=== PATIENT | female | born 1970 | race Caucasian/White ===

== ENCOUNTER 2025-09-27 18:49 | Inpatient (IN) ==
--- NOTE | 2025-09-27 19:05 | Emergency Department Note ---
Past Med/Surg History Problem List Nausea and vomiting (Acute) Right flank pain (Acute) Pyelonephritis (Acute) Medical History Hypertension Social History Smoking Status: Current some day smoker Tobacco Type: Cigarettes Preferred Language: Rw[place] Feels Safe at Home: Yes Home Meds Home Medications Medication Instructions Recorded Confirmed albuterol sulfate 90 mcg/actuation 1 puff inhalation DIRECTED PRN 09/26/25 09/26/25 aerosol inhaler sob alprazolam 1 mg tablet 1 mg PO UD PRN Other 09/26/25 09/26/25 cefuroxime axetil 250 mg tablet 250 mg PO BID 09/26/25 09/26/25 lisinopril 5 mg tablet 5 mg PO DAILY 09/26/25 09/26/25 methylprednisolone 4 mg tablet 4 mg PO DIRECTED 09/26/25 09/26/25 promethazine-DM 6.25 mg-15 mg/5 mL 5 ml PO UD PRN Cough 09/26/25 09/26/25 oral syrup Previous Rx's Medication Instructions Recorded cefdinir 300 mg capsule 300 mg PO BID 14 days #28 caps 09/26/25 ondansetron 4 mg disintegrating 4 mg PO Q6H PRN nausea and 09/26/25 tablet vomiting #14 tabs Results & Data (ED) Vital Signs Vital Signs - 24 hr 09/27/25 18:57 Temperature 36.7 C Temperature Source Oral Pulse Rate 106 H Respiratory Rate 18 Blood Pressure 137/82 Blood Pressure Mean 100 Pulse Oximetry 96 Sepsis Recent Fever Within 48 Hours No Sepsis New/Unexplained Change in Mental Status No Sepsis Action Taken by Nursing No Action Required Discharge Plan Visit Data Chief Complaint: Referred by Doctor Stated Complaint: DOC REFERRAL [facility]PATIENT [facility]TIBOT[facility] ED Provider: Marisel Cadet ED Midlevel Provider: Shanice Husain Forms Stand Alone Forms: [facility] Prescriptions Prescriptions: No Action promethazine-DM 6.25-15 mg/5 mL syrup 5 ml PO UD PRN (Reason: Cough) cefuroxime axetil 250 mg tablet 250 mg PO BID alprazolam 1 mg tablet 1 mg PO UD PRN (Reason: Other) methylprednisolone 4 mg tablet 4 mg PO DIRECTED lisinopril 5 mg tablet 5 mg PO DAILY albuterol sulfate 90 mcg/actuation HFA aerosol inhaler 1 puff INHALATION DIRECTED PRN (Reason: sob) ondansetron 4 mg tablet,disintegrating 4 mg PO Q6H PRN (Reason: nausea and vomiting) Qty: 14 0RF cefdinir 300 mg capsule 300 mg PO BID 14 Days Qty: 28 0RF Referrals Referrals: Reji Gibbs DO [Primary Care Provider] -
[2025-09-27] MEDS: cefTRIAXone SODIUM 2,000 MG/50 ML BAG IV STA (19:34)
[2025-09-27] MEDS: SODIUM CHLORIDE 0.9% 1,000 ML IV SCH ×2 (19:35→23:30)
[2025-09-27 19:42] LABS: Hematocrit (blood only) 35.7 % (37.0-47.0); Hemoglobin 12.1 g/dL (12.0-16.0); Immature Granulocytes # (auto) 0.23 K/uL (0.01-0.20); Immature Granulocytes % (auto) 1.7 %; Mean Corpuscular Hemoglobin 34.3 pg (25.0-34.0); Mean Corpuscular Volume 101.1 fL (80.0-100.0); Platelet Count 257 K/uL (130-400); RDW Standard Deviation 46.6 fL (36.4-46.3); Red Blood Count 3.53 M/uL (4.20-5.40); White Blood Count 13.60 K/ul (4.8-10.8)
[2025-09-27 20:01] LABS: Alanine Aminotransferase 46.0 U/L (7-52); Albumin Level 3.2 gm/dl (3.4-5.0); Alkaline Phosphatase 204.0 U/L (34-104); Anion Gap 13.0 (3-11); Bilirubin,Total 0.4 mg/dl (0.2-1.0); Blood Urea Nitrogen 15.0 mg/dl (6-23); Calcium 8.7 mg/dl (8.6-10.3); Carbon Dioxide 23.0 mmol/L (21-32); Chloride 100.0 mmol/L (98-107); Creatinine Clr Calc Pharmacy 66.1 ml/min; Glucose 90.0 mg/dl (70-99(Fasting)); Magnesium 1.8 mg/dl (1.7-2.4); Potassium 3.0 mmol/L (3.5-5.1); Sodium 136.0 mmol/L (136-145); Total Protein 6.9 gm/dl (6.0-8.3)
--- NOTE | 2025-09-27 20:29 | History & Physical Report ---
Date of Service September 27, 2025 Assessment & Plan (1) Bacteremia: Plan: 54-year-old female with past med history significant for hypertension, anxiety and depression, hypothyroidism, GERD, history of kidney stones came to the ER yesterday for generalized bodyaches, fevers ,nausea and vomiting for few days and found to have UTI and as she improved with the fluids ,pain meds and antiemetics and Rocephin she was discharged with p.o. cefdinir but was called ba ck today because the blood cultures came back positive for gram negative bacilli, urine culture growing E. coli. Patient says she has been sick since . She was having cold symptoms with cough congestion and fevers. It was thought upper respiratory infection and was prescribed Z-Westley and course of steroids and albuterol, she completed the course. Again she was having fevers and not feeling well and still was having cough and she has done second course of azithromycin and steroids. Yesterday she came here for son's graduation and as she was not feeling well came to the ER. Denies any burning micturition or hematuria. Says she stools are somewhat black. Denies any abdominal pain. No chest pain or shortness of breath. Still has cough and bringing up phlegm. She smokes half pack of cigarettes daily but since last 1 week she has not been smoking. Last few days she has been nauseous and not eating. Denies any headache. No runny nose or sore throat. Currently resting comfortably and hemodynamically stable. Seems she is from [facility] and works with [employer]. Bacteremia Acute UTI Gram-negative bacteremia E. coli in urine cultures Empiric Rocephin Fluids Will follow final cultures History of kidney stones but CAT scan of abdomen pelvis IV contrast done yesterday no obvious stones were seen Close monitoring med/telemetry Ongoing cough History of smoking Had couple of courses of azithromycin and steroid as outpatient CTA chest done yesterday unremarkable Chest x-ray today unremarkable Will monitor Mild elevation troponin Mostly demand ischemia Will follow serial cardiac enzymes and EKG Currently asymptomatic History of hypertension Continue lisinopril GERD On Pepcid Anxiety and depression Continue citalopram and alprazolam as needed Hypothyroidism On Synthyroid Will follow TSH Mild elevation of alkaline phosphatase Possibly from ongoing infection Follow repeat labs Hypokalemia Will replace Follow repeat labs Diarrhea black stools hb ok will check stool for Hemoccult and c diff DVT prophylaxis Lovenox Disposition Med/telemetry Full code. History of Present Illness Chief Complaint: Acute UTI, bacteremia Primary Care Provider: Reji Gibbs DO 54-year-old female with past med history significant for hypertension, anxiety and depression, hypothyroidism, GERD, history of kidney stones came to the ER yesterday for generalized bodyaches, fevers ,nausea and vomiting for few days and found to have UTI and as she improved with the fluids ,pain meds and antiemetics and Rocephin she was discharged with p.o. cefdinir but was called back today because the blood cultures came back positive for gram negative bacilli, urine culture growing E. coli. Patient says she has been sick since . She was having cold symptoms with cough congestion and fevers. It was thought upper respiratory infection and was prescribed Z-Westley and course of steroids and albuterol, she completed the course. Again she was having fevers and not feeling well and still was having cough and she has done second course of azithromycin and steroids. Yesterday she came here for son's graduation and as she was not feeling well came to the ER. Denies any burning micturition or hematuria. Says she stools are somewhat black and having diarrhea. Denies any abdominal pain. No chest pain or shortness of breath. Still has cough and bringing up phlegm. She smokes half pack of cigarettes daily but since last 1 week she has not been smoking. Last few days she has been nauseous and not eating. Denies any headache. No runny nose or sore throat. Currently resting comfortably and hemodynamically stable. Seems she is from [facility] and works with [employer]. Past medical history. As mentioned above. Past surgical history. Tonsillectomy. Cholecystectomy. Removal of melanoma lesions in 1998. Right breast biopsy. Social history. Smokes half pack of cigarettes daily. But has been not smoking since last 1 week. Drinks 2-3 drinks daily but since last 1 month has been not drinking. No drug use as per [facility]. Family history. Patient is adopted. Allergies Allergy/AdvReac Type Severity Reaction Status Date / Time No Known Allergies Allergy Unverified 09/27/25 19:33 Home Medications Medication Instructions Recorded Confirmed Type albuterol sulfate 90 mcg/actuation 1 puff inhalation DIRECTED PRN 09/26/25 09/27/25 History aerosol inhaler sob alprazolam 1 mg tablet 1 mg PO UD PRN Other 09/26/25 09/27/25 History cefdinir 300 mg capsule 300 mg PO BID 14 days #28 caps 09/26/25 09/27/25 Rx cefuroxime axetil 250 mg tablet 250 mg PO BID 09/26/25 09/27/25 History lisinopril 5 mg tablet 5 mg PO QAM 09/26/25 09/27/25 History methylprednisolone 4 mg tablet 4 mg PO DIRECTED 09/26/25 09/27/25 History ondansetron 4 mg disintegrating 4 mg PO Q6H PRN nausea and 09/26/25 09/27/25 Rx tablet vomiting #14 tabs promethazine-DM 6.25 mg-15 mg/5 mL 5 ml PO UD PRN Cough 09/26/25 09/27/25 History oral syrup biotin 800 mcg tablet 800 mcg PO QAM 09/27/25 09/27/25 History citalopram 20 mg tablet 20 mg PO QAM 09/27/25 09/27/25 History famotidine 20 mg tablet (Pepcid) 20 mg PO QPM 09/27/25 09/27/25 History levothyroxine 100 mcg tablet 100 mcg PO DAILYBB 09/27/25 09/27/25 History [id number]-fyds-ihob 8 mg-folic 400 1 tab PO QAM 09/27/25 09/27/25 History mcg-K 50 mcg-lutein 300 mcg tablet (Multivitamin Women 50 Plus) Past Med/Surg History Problem List (Updated 09/27/25 @ 20:24 by Nader Syed MD) Bacteremia Nausea and vomiting (Acute) Right flank pain (Acute) Pyelonephritis (Acute) Medical History Hypertension Social History Smoking Status: Current every day smoker Tobacco Type: Cigarettes Cigarettes Per Day: 1/2 pack/day; Do You Dip or Chew Tobacco: No; Hx Alcohol Use: Yes Alcohol type: beer, wine and hard liquor Hx Substance Use: No Preferred Language: Luxembourgish Communication Ability: Effective Feeder Associate Required: No Beliefs That Will Affect Care: None Current Living Situation: Alone Other Information That Helps Us Care for You: No Feels Safe at Home: Yes Safety Concerns: Feels Safe At This Time Assistive Devices: Glasses Review of Systems Review of Systems: All systems reviewed & are unremarkable except as noted in HPI & below Physical Exam Physical Exam: General- Not in acute distress Head- atraumatic Eyes- PERRL. ENT- oropharynx clear Neck- supple, no JVD. Lungs- clear to auscultation no wheezing or crackles Heart- regular rhythm; no murmur, no gallop. Abdomen- normal bowel sounds, soft, nontender, no distension Extremities- no pretibial edema, no erythema seen. Neuro- alert, oriented PERRL, no facial palsy; no dysarthria; moves extremities. Results & Data Results & Data Vital Signs (Past 12 Hours) Vital Signs Temp Pulse Resp BP Pulse Ox O2 Del Method 09/27/25 19:28 95 Room Air 09/27/25 19:22 93 H 09/27/25 18:57 36.7 C 106 H 18 137/82 96 Diagnostic Findings Laboratory Results WBC 13.60 K/ul (4.8-10.8) H 09/27/25 19:23 RBC 3.53 M/uL (4.20-5.40) L 09/27/25 19:23 Hgb 12.1 g/dL (12.0-16.0) 09/27/25 19:23 Hct 35.7 % (37.0-47.0) L 09/27/25 19: MCV 101.1 fL (80.0-100.0) H 09/27/25 19:23 MCH 34.3 pg (25.0-34.0) H 09/27/25 19:23 MCHC 33.9 g/dL (32.0-36.0) 09/27/25 19: RDW Std Deviation 46.6 fL (36.4-46.3) H 09/27/25 19: RDW Coeff of Krysta 12.5 % (11.5-14.5) 09/27/25 19: Plt Count 257 K/uL (130-400) 09/27/25 19: MPV 10.4 fL (9.4-12.4) 09/27/25 19:23 Immature Gran % (Auto) 1.7 % 09/27/25 19: Neut % (Auto) 74.7 % 09/27/25 19:23 Lymph % (Auto) 13.8 % 09/27/25 19:23 [place] % (Auto) 9.0 % 09/27/25 19:23 Eos % (Auto) 0.5 % 09/27/25 19:23 Baso % (Auto) 0.3 % 09/27/25 19: Neut # (Auto) 10.16 K/uL (1.40-6.50) H 09/27/25 19:23 Lymph # (Auto) 1.87 K/uL (1.20-3.40) 09/27/25 19: [place] # (Auto) 1.23 K/uL (0.11-0.59) H 09/27/25 19:23 Eos # (Auto) 0.07 K/uL (0.00-0.50) 09/27/25 19: Baso # (Auto) 0.04 K/uL (0.00-0.20) 09/27/25 19: Immature Gran # (Auto) 0.23 K/uL (0.01-0.20) H 09/27/25 19:23 Sodium 136 mmol/L (136-145) 09/27/25 19: Potassium 3.0 mmol/L (3.5-5.1) L 09/27/25 19:23 Chloride 100 mmol/L (98-107) 09/27/25 19: Carbon Dioxide 23 mmol/L (21-32) 09/27/25 19:23 Anion Gap 13 (3-11) H 09/27/25 19:23 BUN 15 mg/dl (6-23) 09/27/25 19: Creatinine 1.06 mg/dl (0.6-1.2) 09/27/25 19: Est Cr Clr Drug Dosing 66.1 ml/min 09/27/25 19:23 eGFR 62.04 09/27/25 19:23 BUN/Creatinine Ratio 14.2 (10-20) 09/27/25 19: Glucose 90 mg/dl (70-99(Fasting)) 09/27/25 19:23 Lactate 0.8 mmol/L (0.4-2.0) 09/27/25 19:23 Calcium 8.7 mg/dl (8.6-10.3) 09/27/25 19:23 Magnesium 1.8 mg/dl (1.7-2.4) 09/27/25 19:23 Total Bilirubin 0.4 mg/dl (0.2-1.0) 09/27/25 19:23 Direct Bilirubin 0.1 mg/dl (0-0.2) 09/27/25 19:23 AST 23 U/L (13-39) 09/27/25 19:23 ALT 46 U/L (7-52) 09/27/25 19:23 Alkaline Phosphatase 204 U/L (34-104) H 09/27/25 19:23 Troponin I High Sens 20.4 pg/ml (0-14) H 09/27/25 19:23 Total Protein 6.9 gm/dl (6.0-8.3) 09/27/25 19:23 Albumin 3.2 gm/dl (3.4-5.0) L 09/27/25 19:23 Procalcitonin 0.67 ng/ml (0-0.5) H 09/27/25 19:23 Code Status & VTE Plan VTE Prophylaxis Plan VTE Prophylaxis will be ordered: Yes
[2025-09-27 20:57] LABS: Appearance Urine Clear (Clear); Bacteria Urine Automated None Seen (None Seen); Cast Urine Automated 0-2 /lpf (0-2); Glucose Urine UA Negative (Negative); WBC Urine Automated 21-50 /hpf (0-5)
[2025-09-27] MEDS: POTASSIUM CHLORIDE PWD 20 MEQ PACK PO STA (21:18)
--- NOTE | 2025-09-27 21:20 | XRay Report ---
Chest radiograph, one view History: Sepsis. Comparison: September 26, 2025. Findings: Cardiomediastinal silhouette is within normal limits. Pulmonary vasculature is within normal limits. Likely discoid atelectasis left lateral pulmonary base. Lungs are otherwise clear. Pleural spaces are within normal limits. Impression: Stable exam. No findings to indicate source for patient's symptoms. Electronically signed by Jasper Osborne 09-27-2025 9:20 PM
[2025-09-27] MEDS ORDERED: ALBUTEROL HFA 8 GM INHALER INH PRN (22:48)
[2025-09-27] MEDS ORDERED: POLYETHYLENE (MIRALAX) 17 GM PACK PO PRN (22:48)
[2025-09-27] MEDS: FAMOTIDINE 20 MG TAB PO SCH (23:21)
[2025-09-27] MEDS: ONDANSETRON INJ 2 MG/ML 2 ML VIAL IV PRN (23:23)
[2025-09-27] MEDS: KETOROLAC TROMETHAMINE 15 MG/ML VIAL IV PRN (23:23)
[2025-09-27] MEDS: POTASSIUM CHLORIDE / WTR 10 MEQ/100 ML PLCT IV SCH (23:30)
[2025-09-28 00:36] LABS: Cdiff Toxin B Gene (2yr or >) Negative Cdiff Gene (Neg)
[2025-09-28] MEDS: LEVOTHYROXINE SODIUM 100 MCG TABLET PO SCH (06:14)
[2025-09-28 07:00] LABS: Hematocrit (blood only) 33.2 % (37.0-47.0); Hemoglobin 11.4 g/dL (12.0-16.0); Immature Granulocytes # (auto) 0.16 K/uL (0.01-0.20); Immature Granulocytes % (auto) 1.6 %; Mean Corpuscular Hemoglobin 35.8 pg (25.0-34.0); Mean Corpuscular Volume 104.4 fL (80.0-100.0); Platelet Count 268 K/uL (130-400); RDW Standard Deviation 47.8 fL (36.4-46.3); Red Blood Count 3.18 M/uL (4.20-5.40); White Blood Count 10.06 K/ul (4.8-10.8)
[2025-09-28 07:41] LABS: Anion Gap 9.0 (3-11); Blood Urea Nitrogen 10.0 mg/dl (6-23); Calcium 8.1 mg/dl (8.6-10.3); Carbon Dioxide 23.0 mmol/L (21-32); Chloride 106.0 mmol/L (98-107); Creatinine Clr Calc Pharmacy 77.0 ml/min; Glucose 70.0 mg/dl (70-99(Fasting)); Magnesium 1.8 mg/dl (1.7-2.4); Potassium 3.9 mmol/L (3.5-5.1); Sodium 138.0 mmol/L (136-145)
[2025-09-28] MEDS: CITALOPRAM 20 MG TAB PO SCH (08:09)
[2025-09-28] MEDS: ENOXAPARIN INJ 40 MG/0.4 ML SYR SQ SCH (08:09)
[2025-09-28] MEDS: CEROVITE ADV FORMULA TAB PO SCH (08:09)
[2025-09-28] MEDS: ACETAMINOPHEN 325 MG TAB PO PRN (08:25)
--- NOTE | 2025-09-28 12:01 | Hospitalist Progress Note ---
Date of Service September 28, 2025 Assessment & Plan (1) Bacteremia: Plan: 54-year-old female with past med history significant for hypertension, anxiety and depression, hypothyroidism, GERD, history of kidney stones came to the ER With fever, flank pain and generalized bodyaches. She was discharged from the ED but was called back after she was found to have bacteremia E.coli Bacteremia Acute UTI Right-sided pyelonephritis Sepsis POA Presents with right flank pain, fever, muscle aches. Urine culture positive for E. coli; sensitive to ceftriaxone, ciprofloxacin; resistant to Augmentin Blood culture from out of 4 positive for E. coli Continue on ceftriaxone; follow-up on repeat blood culture from September 27, 2025. Plan on doing 10 to 14 days of antibiotics given right-sided pyelonephritis. Mild elevation troponin Mostly demand ischemia High sensitivity troponin peaked to 20 and down trended; no chest pain or discomfort. History of hypertension Continue lisinopril GERD On Pepcid Anxiety and depression Continue citalopram and alprazolam as needed Hypothyroidism On Synthyroid-continue Mild elevation of alkaline phosphatase Possibly from ongoing infection Follow repeat labs Hypokalemia- repleted DVT prophylaxis Lovenox Disposition Med/telemetry Full code. Time spent evaluating patient, direct bedside care, chart review, placing orders, interpretation of diagnostic studies, discussion with consultants, patient, and family members, as well as other required patient management activities is 50 minutes Please note the above document was generated using voice recognition software. It may contain grammatical, syntax or spelling errors. Any formal questions or concerns about the content, text or information contained within the body of this dictation should be directly addressed to the provider for clarification Admission and Anticipated Discharge Date Admission Date: September 27, 2025 Subjective Patient seen and examined at bedside. She is comfortable; not in distress. No complaint of fever or chills today. Continues to have right flank pain Review of Systems Review of Systems: All systems reviewed & are unremarkable except as noted in Subjective Physical Exam Physical Exam: General- Not in acute distress Head- atraumatic Eyes- PERRL. ENT- oropharynx clear Neck- supple, no JVD. Lungs- clear to auscultation no wheezing or crackles Heart- regular rhythm; no murmur, no gallop. Abdomen- Right costovertebral angle tender Extremities- no pretibial edema, no erythema seen. Neuro- alert, oriented PERRL, no facial palsy; no dysarthria; moves extremities. Results & Data Results & Data Vital Signs (Past 12 Hours) Vital Signs Temp Pulse Pulse Resp BP Pulse Ox O2 Del Method 09/28/25 11:42 36.6 C 92 H 16 134/77 96 Room Air 09/28/25 08:30 Room Air 09/28/25 08:02 36.7 C 86 16 129/77 96 Room Air 09/28/25 05:41 80 09/28/25 03:07 36.8 C 91 H 16 115/72 94 Room Air
--- NOTE | 2025-09-28 14:19 | Electrocardiogram Report ---
Test Reason : Blood Pressure : */* mmHG Vent. Rate : 95 BPM Atrial Rate : 95 BPM P-R Int : 132 ms QRS Dur : 76 ms QT Int : 376 ms P-R-T Axes : 55 10 42 degrees QTcB Int : 472 ms Normal sinus rhythm Possible Left atrial enlargement Borderline ECG When compared with ECG of 26-Sep-2025 10:56, No significant change was found Confirmed by Narinder Fuller ([id number]) on 09/28/2025 2:19:05 PM Referred By: REFERRED SELF Confirmed By: Narinder Fuller
[2025-09-28] MEDS: cefTRIAXone SODIUM 2,000 MG/50 ML BAG IV SCH (15:11)
[2025-09-28] MEDS ORDERED: cefTRIAXone SODIUM 2,000 MG/50 ML BAG IV SCH (19:00)
[2025-09-28 23:49] VITALS: O2SAT 97
[2025-09-29 06:41] LABS: Hematocrit (blood only) 33.4 % (37.0-47.0); Hemoglobin 11.3 g/dL (12.0-16.0); Immature Granulocytes # (auto) 0.15 K/uL (0.01-0.20); Immature Granulocytes % (auto) 1.7 %; Mean Corpuscular Hemoglobin 34.0 pg (25.0-34.0); Mean Corpuscular Volume 100.6 fL (80.0-100.0); Platelet Count 288 K/uL (130-400); RDW Standard Deviation 46.1 fL (36.4-46.3); Red Blood Count 3.32 M/uL (4.20-5.40); White Blood Count 8.58 K/ul (4.8-10.8)
[2025-09-29 07:25] LABS: Albumin Level 3.0 gm/dl (3.4-5.0); Anion Gap 10.0 (3-11); Bilirubin,Total 0.2 mg/dl (0.2-1.0); Calcium 8.6 mg/dl (8.6-10.3); Carbon Dioxide 23.0 mmol/L (21-32); Chloride 107.0 mmol/L (98-107); Potassium 3.8 mmol/L (3.5-5.1); Sodium 140.0 mmol/L (136-145)
[2025-09-29 07:31] LABS: Alanine Aminotransferase 24.0 U/L (7-52); Alkaline Phosphatase 155.0 U/L (34-104); Blood Urea Nitrogen 5.0 mg/dl (6-23); Creatinine Clr Calc Pharmacy 89.1 ml/min; Glucose 98.0 mg/dl (70-99(Fasting)); Total Protein 6.1 gm/dl (6.0-8.3)
[2025-09-29 08:11] VITALS: RESP 18
[2025-09-29 11:22] VITALS: BP 130/84; TEMP 97.7
--- NOTE | 2025-09-29 14:28 | Discharge Summary ---
Date of Service September 29, 2025 Admission HPI Per Admitting Provider 54-year-old female with past med history significant for hypertension, anxiety and depression, hypothyroidism, GERD, history of kidney stones came to the ER yesterday for generalized bodyaches, fevers ,nausea and vomiting for few days and found to have UTI and as she improved with the fluids ,pain meds and antiemetics and Rocephin she was discharged with p.o. cefdinir but was called back today because the blood cultures came back positive for gram negative bacilli, urine culture growing E. coli. Patient says she has been sick since . She was having cold symptoms with cough congestion and fevers. It was thought upper respiratory infection and was prescribed Z-Westley and course of steroids and albuterol, she completed the course. Again she was having fevers and not feeling well and still was having cough and she has done second course of azithromycin and steroids. Yesterday she came here for son's graduation and as she was not feeling well came to the ER. Denies any burning micturition or hematuria. Says she stools are somewhat black and having diarrhea. Denies any abdominal pain. No chest pain or shortness of breath. Still has cough and bringing up phlegm. She smokes half pack of cigarettes daily but since last 1 week she has not been smoking. Last few days she has been nauseous and not eating. Denies any headache. No runny nose or sore throat. Currently resting comfortably and hemodynamically stable. Seems she is from [facility] and works with [employer]. Past medical history. As mentioned above. Past surgical history. Tonsillectomy. Cholecystectomy. Removal of melanoma lesions in 1998. Right breast biopsy. Social history. Smokes half pack of cigarettes daily. But has been not smoking since last 1 week. Drinks 2-3 drinks daily but since last 1 month has been not drinking. No drug use as per [employer]. Family history. Patient is adopted. Admission Exam Per Admitting Provider General- Not in acute distress Head- atraumatic Eyes- PERRL. ENT- oropharynx clear Neck- supple, no JVD. Lungs- clear to auscultation no wheezing or crackles Heart- regular rhythm; no murmur, no gallop. Abdomen- normal bowel sounds, soft, nontender, no distension Extremities- no pretibial edema, no erythema seen. Neuro- alert, oriented PERRL, no facial palsy; no dysarthria; moves extremities. Principal Diagnosis E.coli Bacteremia Acute UTI Right-sided pyelonephritis Sepsis POA Discharge Exam General- Not in acute distress Head- atraumatic Eyes- PERRL. ENT- oropharynx clear Neck- supple, no JVD. Lungs- clear to auscultation no wheezing or crackles Heart- regular rhythm; no murmur, no gallop. Abdomen- Right costovertebral angle tender x mild Extremities- no pretibial edema, no erythema seen. Neuro- alert, oriented PERRL, no facial palsy; no dysarthria; moves extremities. Discharge Data Allergies Allergy/AdvReac Type Severity Reaction Status Date / Time No Known Allergies Allergy Unverified 09/27/25 19:33 Consultations 09/27/25 19:27 ED Decision to Admit Stat Hospital Course (1) Bacteremia: Per prior attending with addendum: 54-year-old female with past med history significant for hypertension, anxiety and depression, hypothyroidism, GERD, history of kidney stones came to the ER With fever, flank pain and generalized bodyaches. She was discharged from the ED but was called back after she was found to have bacteremia E.coli Bacteremia Acute UTI Right-sided pyelonephritis Sepsis POA Presents with right flank pain, fever, muscle aches. Urine culture positive for E. coli; sensitive to ceftriaxone, ciprofloxacin; resistant to Augmentin Blood culture from out of 4 positive for E. coli Continue on ceftriaxone; follow-up on repeat blood culture from September 27, 2025. Plan on doing 10 to 14 days of antibiotics given right-sided pyelonephritis. Mild elevation troponin Mostly demand ischemia High sensitivity troponin peaked to 20 and down trended; no chest pain or discomfort. History of hypertension Continue lisinopril GERD On Pepcid Anxiety and depression Continue citalopram and alprazolam as needed Hypothyroidism On Synthyroid-continue Mild elevation of alkaline phosphatase Possibly from ongoing infection Follow repeat labs Hypokalemia- repleted DVT prophylaxis Lovenox Disposition Med/telemetry Full code. Addendum 09/29/2025: Patient was seen and examined at bedside as a follow-up of E. coli bacteremia and acute right-sided pyelonephritis. Patient received 3 days of IV Rocephin. Patient is hemodynamically stable and labs reviewed. Her repeat blood culture is negative for 24 hours, ideally would like patient to stay until 48 hours blood culture results are out. Patient feels significantly better since presentation and would like to go home. Patient made aware to follow-up with PCP office within a week time and follow-up on final results of blood culture. Patient will be discharged on ciprofloxacin for 7 more days to complete 10 days of therapy. Patient is being discharged with following instructions at the point of discharge: Follow-up with your primary care physician within a week time and likely you will need labs CBC/CMP/magnesium/phosphorus. Follow-up on the final results of your blood culture with your PCP office within a week time. You will be discharged on ciprofloxacin to complete 10 days course of treatment. Take your medications as prescribed. Please make sure that you are able to get your medications today by calling your pharmacy before you leave the hospital so that your treatment continuity is not broken. Please note the above document was generated using voice recognition software. It may contain grammatical, syntax or spelling errors. Any formal questions or concerns about the content, text or information contained within the body of this dictation should be directly addressed to the provider for clarification Home Health Attestation I certify that this patient is under my care and that I, or a physicians special education educational assistant working with me, had a face to-face encounter that meets the home health nuha-cu-tmpu encounter requirements with this patient. The encounter with the patient was in whole, or in part, for the following medical condition, which is the primary reason for home health care (list medi lydia condition): I certify that, based on my findings, the following services are medically necessary home health services: My clinical findings support the need for the above services because: Further, I certify that my clinical findings support that this patient is homebound (i.e. absences from home require considerable and taxing effort and are for medical reasons or nondenominational services or infrequently or of short duration when for other reasons) because: Certification for Home Health Services: Based on the above findings, I certify that this patient is confined to the home and needs intermittent alf care, physical therapy and/or speech ther apy or continues to need occupational therapy. The patient is under my care, and I have initiated the establishment of the plan of care. This patient will be followed by a physician who will periodically review the plan of care. Total Time Total Time Spent Total Time Spent (In Minutes): 45 Discharge Plan Discharge Items Patient Disposition: Home - Self-Care Reason For Visit: BACTEREMIA Discharge Diagnosis: E.coli Bacteremia Acute UTI Right-sided pyelonephritis Sepsis POA Activity: Resume your previous activity Non-emergency contact: Primary Care Provider Call non-emergency contact if: you have any medication questions Follow-up/Referrals: Reji Gibbs, [Primary Care Provider] - (Please make a follow up appointment with your PCP within 1 week.) Diet: Heart Healthy Addtl Attending Provider Instructions: Follow-up with your primary care physician within a week time and likely you will need labs CBC/CMP/magnesium/phosphorus. Follow-up on the final results of your blood culture with your PCP office within a week time. You will be discharged on ciprofloxacin to complete 10 days course of treatment. Take your medications as prescribed. Please make sure that you are able to get your medications today by calling your pharmacy before you leave the hospital so that your treatment continuity is not broken. Pending Studies at Discharge: Yes Stand-Alone Forms: My [facility], Smoking Cessation Medications and DC Order Prescriptions: New ciprofloxacin HCl [Cipro] 500 mg tablet 500 mg PO BID 7 Days Qty: 14 0RF Continued alprazolam 1 mg tablet 1 mg PO UD PRN (Reason: Other) lisinopril 5 mg tablet 5 mg PO QAM albuterol sulfate 90 mcg/actuation HFA aerosol inhaler 1 puff INHALATION DIRECTED PRN (Reason: sob) levothyroxine 100 mcg Tablet 100 mcg PO DAILYBB citalopram 20 mg Tablet 20 mg PO QAM Multivitamin Women 50 Plus 8 mg iron-400 mcg-50 mcg Tablet 1 tab PO QAM biotin 800 mcg Tablet 800 mcg PO QAM famotidine [Pepcid] 20 mg Tablet 20 mg PO QPM ondansetron 4 mg tablet,disintegrating 4 mg PO Q6H PRN (Reason: nausea and vomiting) Qty: 14 0RF Discontinued promethazine-DM 6.25-15 mg/5 mL syrup 5 ml PO UD PRN (Reason: Cough) cefuroxime axetil 250 mg tablet 250 mg PO BID methylprednisolone 4 mg tablet 4 mg PO DIRECTED cefdinir 300 mg capsule 300 mg PO BID 14 Days Qty: 28 0RF Discharge Orders: Discharge Order (Routine); Ordered 09/29/25 Ordered By: Tashi Johansen Admission Data Admit Date/Time: 09/27/25 20:12 Attending Provider: Tashi Johansen Admit Provider: Nader Syed Primary Care Provider: Reji Gibbs Other Providers: Nader Syed
[2025-09-29 14:41] VITALS: PULSE 79
== END 2025-09-29 14:49 | disposition home or self-care (01) | DRG 872 ==
LOC: ED 18:49 → SUATTDRO 20:12 → 2N 20:12